=== PATIENT | female | born 1980 | race Caucasian/White ===

== ENCOUNTER → 2019-09-10 16:38 | Outpatient (CLI) | payer BC, SELFPAY ==
[2019-09-10 17:05] LABS: Basophils # 0.1 K/mm3 (0-0.2); Basophils % 0.6 % (0.1-2.0); Eosinophils # 0.2 K/mm3 (0.0-0.4); Eosinophils % 2.9 % (0.1-12.0); Hematocrit 40.9 % (37.0-47.0); Hemoglobin 13.8 g/dL (12.2-16.2); Lymphocytes # 1.9 K/mm3 (0.7-4.5); Lymphocytes % 24.2 % (10-50); Mean Corpuscular HGB Conc 33.7 g/dL (31.8-35.4); Mean Corpuscular Hemoglobin 30.1 pg (27.0-31.2); Mean Corpuscular Volume 89.4 fl (81-99); Mean Platelet Volume 9.1 fl (7.4-10.4); Monocytes # 0.5 K/mm3 (0.1-1.0); Monocytes % 6.4 % (1.7-9.3); Neutrophils # 5.2 K/mm3 (1.8-7.8); Neutrophils % 65.9 % (37.0-80.0); Platelet Count 361 K/mm3 (142-424); Red Blood Count 4.57 M/mm3 (4.20-5.40); Red Cell Distribution Width 13.1 % (11.5-17.5); White Blood Count 7.8 K/mm3 (4.8-10.8)
[2019-09-10 17:11] LABS: Chloride 105 mmol/L (98-107); Potassium 4.1 mmoL/L (3.5-5.1); Sodium 141 mmol/L (136-145)
[2019-09-10 17:14] LABS: Alanine Aminotransferase 24 U/L (12-78); Albumin Level 4.4 g/dl (3.5-5.0); Albumin/Globulin Ratio 1.6 (1.1-1.8); Alkaline Phosphatase 42 U/L (38-126); Anion Gap 13.1 mEq/L (5-15); Aspartate Amino Transferase 29 U/L (14-36); Bilirubin,Total 0.4 mg/dl (0.2-1.3); Blood Urea Nitrogen 12 mg/dl (7-17); Carbon Dioxide 27 mmol/L (22.0-30.0); Cholesterol 171 mg/dl (140-200); Estimated Glomerular Filt Rate 62 ml/min (>60); GFR (African American) 75 ML/MIN (>60); Globulin 2.8 g/dL (1.3-3.2); Glucose 95 mg/dl (74-100); Total Protein,Serum 7.2 g/dl (6.3-8.2); Triglycerides 165 mg/dl (30-150); VLDL Cholesterol 33 mg/dL (0-40)
[2019-09-10 17:15] LABS: Chol/HDL Ratio 2.3 (1-3.5); HDL Cholesterol 73 mg/dl (40-60)
[2019-09-10 17:26] LABS: Direct LDL Cholesterol 62.11 mg/dL (100-129)
[2019-09-10 17:45] LABS: Thyroid Stimulating Hormone 1.68 uIU/mL (0.465-4.68)
[2019-09-12 20:42] LABS: Folate 12.5 ng/mL (>3.0); Vitamin B12 405 pg/mL (232-1245); Vitamin D 25 Hydroxy 51.8 ng/mL (30.0-100.0)
== END ==
PROVIDERS: Visit Provider Physician Assistant
DX: G62.9 Polyneuropathy, unspecified (principal); Z79.899 Other long term (current) drug therapy
CPT/HCPCS: 80053; 80061; 82607; 82652; 82746; 84436; 84443; 85025

== ENCOUNTER → 2020-04-14 16:08 | Outpatient (CLI) | payer BC, SELFPAY ==
--- NOTE | 2020-04-14 16:09 | MM_ITS ---
PROCEDURE: MM DIG SCREENING MAMM BI W/CAD Digital Breast Tomosynthesis Included CLINICAL INDICATION: screening There is a history of breast cancer in the patient's mother diagnosed at age 50. COMPARISON: This is a baseline exam, patient without complaints TECHNIQUE: Standard CC and MLO images and 3D Tomosynthesis was obtained. R2 CAD reviewed. FINDINGS: Prominent somewhat heterogenic fibroglandular densities are seen throughout both breast. There is a possible asymmetric density lower inner quadrant left breast best appreciated on the CC projection where it shows somewhat irregular borders. Endy images are somewhat indeterminate recommend the patient return for spot compression views and ultrasound if this proves to be a true lesion there are no suspicious microcalcifications.. IMPRESSION: Moderate breast density with possible asymmetric lesion left breast versus asymmetric normal glandular elements BI-RAD Category: 0 Need Additional Imaging Evaluation FOLLOW-UP: IMM Immediate Follow-up Recommended (A letter has been sent to the patient regarding results of the study.) Dictated by: Dr. Magdi Edward MD 04/19/2020 13:23 Dr. Magdi Edward MD in [place] 04/19/2020 13:23
--- NOTE | 2020-04-14 16:12 | XR_ITS ---
PROCEDURE: XR CHEST 2V CLINICAL HISTORY: Smoker Cough COMPARISON: No exams were available for comparison FINDINGS: The cardiomediastinal silhouette and pulmonary vascularity are within normal limits. The lungs are clear without infiltrates, suspicious nodules, or pleural effusions. Minimal midthoracic curvature convex right IMPRESSION: No acute findings. Dictated by: Marcellus Spear MD 04/14/2020 16:54 Marcellus Spear MD in [place] 04/14/2020 16:54
== END ==
PROVIDERS: PCP Physician Assistant; Visit Provider Physician Assistant
DX: Z12.31 Encounter for screening mammogram for malignant neoplasm of breast (principal); F17.200 Nicotine dependence, unspecified, uncomplicated
CPT/HCPCS: 71046; 77063; 77067

== ENCOUNTER 2020-06-14 13:40 | Emergency (ER) | payer BC, SELFPAY ==
[2020-06-14 13:51] VITALS: BP 127/76; PULSE 74; RESP 19; TEMP 36.6; O2SAT 99; BMI 24.3
--- NOTE | 2020-06-14 13:58 | HMH.EDUTC ---
[facility] [place] Clinical Impression: Close exposure to COVID-19 virus Disposition: Home, Self-Care Condition on Discharge: Good Instructions: Preventing the Spread of Coronavirus Discharge Instructions Additional Instructions: *Monitor Temp, Over the counter Motrin or Tylenol as directed/as needed Tylenol every 4 hours and Motrin every 6 hours (as long as your family doctor has told you that you can take it) for fever or pain. and straight to ER if unable to lower temp less than 101.0 after medication given *Warm salt water gargles may help to soothe the throat *Throat Lozenges *Warm fluids like tea with honey may help to soothe the throat *Sleep elevated *Humidifier/Vaporizer Follow up IMMEDIATELY for new or worsening symptoms or no Noticeable improvement over the next 48-72 hours. 911 for difficulty breathing or swallowing You were tested for today for COVID19 your test result should be back in the next 24-48 hours, you may call to the [facility] to see if your test results are back in the next 48 hours [phone] [facility] hours are 9am-9pm You was given a handout with instructions for Self Quarantine and Self isolation for while you wait on test results and what to do if they are positive If you are positive the Health Dept will be contacting you also Referrals: Haleigh Way PA [Primary Care Provider] - As needed Forms: Work/School Release Time of Disposition: 14:00 Medical Decision Making - Gerardo Inquiry Pt receiving controlled substance: No Gerardo was queried for this patient: No Vital Signs: 06/14/20 13:51 Temperature 97.8 F Temperature Source Oral Pulse Rate [Right Brachial] 74 Respiratory Rate 19 Blood Pressure [Right Arm] 127/76 Blood Pressure Mean [Right Arm] 93 Blood Pressure Source [Right Arm] Automatic Cuff Blood Pressure Position [Right Arm] Sitting 02 Sat by Pulse Oximetry 99 Oxygen Delivery Method Room Air Orders (Tests/Meds): ORDERS Category Date Time Status Covid-19 Nasal PCR Sendout [facility] 06/14/20 13:46 Ordered [facility] [place] HPI - General Stated complaint: covid exposure Time Seen by Provider: 06/14/20 13:58 Mode of Arrival: Ambulatory Source of Information: Patient Description of Symptoms (Recalled from Triage Doc. by RN): covid exposure 1wk ago, denies any symptoms HEENT Symptoms (Recalled from RN notes): No Resp Symptoms (Recalled from RN notes): No Skin Symptoms (Recalled from RN notes): No MS Symptoms (Recalled from RN notes): No Functional Status (Recalled from RN notes): wnl - History of Present Illness Provider Complaint: Patient state that she was recently around someone that tested positive for COVID State that she is not having any symptoms but wanted to get checked - Related Data Previous Rx's Medication Instructions Recorded cyclobenzaprine 10 mg tablet 10 mg PO TID PRN #30 tab 01/14/20 gabapentin 400 mg capsule 400 mg PO TID #90 cap 05/31/20 pantoprazole 40 mg granules 40 mg PO DAILY #30 each 05/31/20 delayed-release for susp in packet Allergies Allergy/AdvReac Type Severity Reaction Status Date / Time No Known Allergies Allergy Verified 05/31/20 08:32 - Worker's Comp Is this a Worker's Comp case?: No [facility] History - Hepatitis A Screen Drug use history?: No High risk sexual behaviors?: No History of sexually transmitted infection?: No Currently employed?: No Childcare worker?: No Do you have indoor plumbing?: Yes Do you have electricity?: Yes Attestation statement:: This patient has been screened for Hepatitis A risk factors. I have reviewed the patient's past medical history: Yes Medical History: Reports:: Anxiety, Asthma, Hepatitis, Kidney Stones Other Medical History: Reports: Anemia Laterality Cases: Bilateral: Tonsillectomy - Social History Smoking Status: Never smoker Tobacco Type: cigarettes # Packs/Day (cigarettes): 1 Alcohol Intake: never Substance Use Type: former substance user, marijuana, heroin, crack/co
[2020-06-14 14:07] VITALS: BP 127/79; PULSE 74; RESP 19; TEMP 36.6; O2SAT 99
[2020-06-16 12:37] LABS: Covid-19 Nasal PCR Sendout Lex Not Detected
== END 2020-06-14 14:07 | disposition home or self-care (01) ==
PROVIDERS: Emergency Provider Nurse Practitioner; PCP Physician Assistant
DX: Z20.828 Contact with and (suspected) exposure to other viral communicable diseases (principal); F41.9 Anxiety disorder, unspecified; J45.909 Unspecified asthma, uncomplicated; F19.11 Other psychoactive substance abuse, in remission; Z87.442 Personal history of urinary calculi
CPT/HCPCS: 99201; U0004

== ENCOUNTER 2020-07-27 16:53 | Emergency (ER) | payer BC, SELFPAY ==
[2020-07-27 16:55] VITALS: BP 117/86; PULSE 67; RESP 16; TEMP 37.2; O2SAT 97; BMI 24.3
--- NOTE | 2020-07-27 17:07 | HMH.EDUTC ---
[facility] [place] Disposition Clinical Impression: Exposure to COVID-19 virus, Viral syndrome Disposition: Home, Self-Care Condition on Discharge: Good Instructions: DI for COVID-19 (Suspected or Confirmed ), Preventing the Spread of Coronavirus Discharge Instructions Additional Instructions: Drink plenty of fluids. Take tylenol for pain or fever. Return if you begin to have difficulty breathing. Follow up with your regular doctor. GO TO THE ER FOR ANY WORSENING SYMPTOMS Prescriptions: Ondansetron [Zofran 4mg ODT] 4 mg PO Q8HP PRN #12 tab.rapdis PRN Reason: Nausea Transmission Status: Received by [facility] Referrals: Haleigh Way PA [Primary Care Provider] - Time of Disposition: 17:19 Medical Decision Making - Medical Records Medical records reviewed: No: I reviewed the patient's medical records. - Gerardo Inquiry Pt receiving controlled substance: No Vital Signs: 07/27/20 16:55 07/27/20 17:21 Temperature 98.9 F 98.9 F Temperature Source Oral Oral Pulse Rate 67 Pulse Rate [Right] 67 Respiratory Rate 16 16 Blood Pressure 117/86 Blood Pressure [Right Arm] 117/86 Blood Pressure Mean [Right Arm] 96 02 Sat by Pulse Oximetry 97 Orders (Tests/Meds): ORDERS Category Date Time Status Covid-19 Nasal PCR Sendout [facility] 07/27/20 17:06 Received [facility] [place] HPI - General Stated complaint: needs covid test,N/V,body aches Time Seen by Provider: 07/27/20 17:07 Description of Symptoms (Recalled from Triage Doc. by RN): pt request COVID test pt c/o Jimenes, fever, fatigue HEENT Symptoms (Recalled from RN notes): No Resp Symptoms (Recalled from RN notes): No Skin Symptoms (Recalled from RN notes): No MS Symptoms (Recalled from RN notes): No Functional Status (Recalled from RN notes): wnl - History of Present Illness Provider Complaint: She is here c/o body ache, nausea/vomiting and feeling bad for the past 2 days. - Related Data Previous Rx's Medication Instructions Recorded cyclobenzaprine 10 mg tablet 10 mg PO TID PRN #30 tab 01/14/20 gabapentin 400 mg capsule 400 mg PO TID #90 cap 05/31/20 pantoprazole 40 mg granules 40 mg PO DAILY #30 each 05/31/20 delayed-release for susp in packet Ondansetron [Zofran 4mg ODT] 4 mg PO Q8HP PRN #12 tab.rapdis 07/27/20 Allergies Allergy/AdvReac Type Severity Reaction Status Date / Time No Known Allergies Allergy Verified 07/27/20 17:07 - Worker's Comp Is this a Worker's Comp case?: No Is this an [facility] Worker's Comp?: No Is this a Debo Worker's Comp?: No H History - Hepatitis A Screen Drug use history?: No High risk sexual behaviors?: No History of sexually transmitted infection?: No Currently employed?: No Childcare worker?: No Do you have indoor plumbing?: Yes Do you have electricity?: Yes Attestation statement:: This patient has been screened for Hepatitis A risk factors. I have reviewed the patient's past medical history: Yes Medical History: Reports:: Anxiety, Asthma, Hepatitis, Kidney Stones Other Medical History: Reports: Anemia Laterality Cases: Bilateral: Tonsillectomy - Social History Smoking Status: Never smoker Tobacco Type: cigarettes # Packs/Day (cigarettes): 1 Alcohol Intake: never Substance Use Type: former substance user, marijuana, heroin, crack/cocaine Occupational Status: employed Housing: house Household Members: spouse - Psychiatric History Pschychiatric History:: Reports:: Anxiety ROS Obtained: Yes All systems reviewed & no additional complaints - Constitutional Constitutional: Reports system reviewed and no additional complaints, except as docu - Eyes Eyes: Reports system reviewed and no additional complaints, except as docu - ENT Ears, Nose, Mouth, and Throat: Reports system reviewed and no additional complaints, except as docu - Cardiovascular Cardiovascular: Reports system reviewed and no additional complaints, except as docu - Respiratory Respiratory: R
[2020-07-27 17:21] VITALS: BP 117/86; PULSE 67; RESP 16; TEMP 37.2; O2SAT 97
[2020-07-29 10:57] LABS: Covid-19 Nasal PCR Sendout P&C Negative
== END 2020-07-27 17:25 | disposition home or self-care (01) ==
PROVIDERS: Emergency Provider Nurse Practitioner Family; PCP Physician Assistant
DX: Z20.822 Contact with and (suspected) exposure to COVID-19 (principal); F19.11 Other psychoactive substance abuse, in remission
CPT/HCPCS: 99202; G0463; U0004

== ENCOUNTER 2020-11-01 14:29 | Emergency (ER) | payer OTHER, SELFPAY ==
[2020-11-01 15:02] VITALS: BP 98/68; PULSE 64; RESP 18; TEMP 36.7; O2SAT 99; BMI 25.0
--- NOTE | 2020-11-01 15:09 | HMH.EDUTC ---
[facility] [place] Disposition Clinical Impression: Sinusitis Qualifiers: Sinusitis location: unspecified location Chronicity: unspecified Qualified Code(s): J32.9 - Chronic sinusitis, unspecified Disposition: Home, Self-Care Condition on Discharge: Good Instructions: Sinusitis, Diarrhea, DI for Sinusitis, Nausea and Vomiting-Adult Additional Instructions: Drink extra fluids with and between meals. If you have difficulty drinking, try very small amounts of water or suck on ice chips. ? Avoid fruit juices, as these do not replace minerals and can actually increase diarrhea. ? Children and adults can use sports drinks to replenish electrolytes. Younger children and infants should use products formulated for children, like oral rehydration solutions. ? Eat food in small amounts and let your stomach recover. ? Get lots of rest. You may feel tired or weak. ? No greasy or fried foods for the next 24-48 hours BRAT diet Bananas Rice Apples and Catlett ? Make sure to drink plenty of liquids ? Return if needed ? Straight to ER if any life threatening symptoms ? Zofran as prescribed ? Follow up with family doctor in the next 48-72 hours if no improvement or any worsening of symptoms Start antibiotic. Sinus infections may take 2-3 days to notice much improvement so be sure to use conservative measures as discussed for symptoms Flonase 2 spray in each nostril daily to help with nasal congestion, sinus an ear pressure/inflammation Lots of Fluids Sleep elevated Humidifer/vaporizer Augmentin can cause GI effects. Probiotics may help to prevent these symptoms Follow up with family doctor if no improvement or any worsening of symptoms Prescriptions: Amoxicillin/Potassium Clav [Augmentin 875-125 Tablet] 1 tab PO Q12H 7 Days #14 tab Transmission Status: Pending to [facility] Ondansetron [Zofran 4mg ODT] 4 mg PO TIDP PRN #6 tab PRN Reason: Vomiting Transmission Status: Pending to [facility] Referrals: Haleigh Way PA [Primary Care Provider] - As needed Forms: Work/School Release Time of Disposition: 15:16 Medical Decision Making - Gerardo Inquiry Pt receiving controlled substance: No Gerardo was queried for this patient: No Vital Signs: 11/01/20 15:02 Temperature 98.1 F Temperature Source Oral Pulse Rate [Right Brachial] 64 Respiratory Rate 18 Blood Pressure [Right Arm] 98/68 L Blood Pressure Mean [Right Arm] 78 Blood Pressure Source [Right Arm] Automatic Cuff Blood Pressure Position [Right Arm] Sitting 02 Sat by Pulse Oximetry 99 Oxygen Delivery Method Room Air [facility] [place] HPI - General Stated complaint: nausea,SOA,sinus congestion,diarrhea Time Seen by Provider: 11/01/20 15:09 Mode of Arrival: Ambulatory Source of Information: Patient Limitations: No Limitations Description of Symptoms (Recalled from Triage Doc. by RN): FEVER, NAUSEA HEENT Symptoms (Recalled from RN notes): Yes Resp Symptoms (Recalled from RN notes): No Skin Symptoms (Recalled from RN notes): No MS Symptoms (Recalled from RN notes): No Functional Status (Recalled from RN notes): WNL - History of Present Illness Provider Complaint: Patient states that she has been having sinus pain and pressure for over a week States that over the weekend she had some nausea/vomiting/diarrhea State that she thinks it was from the drainage in the back of her throat from her sinuses States that she is blowing yellowish green mucous - Related Data Previous Rx's Medication Instructions Recorded cyclobenzaprine 10 mg tablet 10 mg PO TID PRN #30 tab 01/14/20 gabapentin 400 mg capsule 400 mg PO TID #90 cap 10/05/20 sucralfate 1 gram tablet 1 g PO QAC #90 tab 10/05/20 Amoxicillin/Potassium Clav 1 tab PO Q12H 7 Days #14 tab 11/01/20 [Augmentin 875-125 Tablet] Ondansetron [Zofran 4mg ODT] 4 mg PO TIDP PRN #6 tab 11/01/20 Allergies Allergy/AdvReac Type Severity Reaction Status Date / Time No Known Allergies Allergy Verified 10/05/20 16:00 - Wor
[2020-11-01 15:18] VITALS: BP 98/68; PULSE 64; RESP 18; TEMP 36.7
== END 2020-11-01 15:22 | disposition home or self-care (01) ==
PROVIDERS: Emergency Provider Nurse Practitioner; PCP Physician Assistant
DX: J32.9 Chronic sinusitis, unspecified (principal)
CPT/HCPCS: 99202; G0463

== ENCOUNTER → 2020-11-03 15:07 | Outpatient (CLI) | payer OTHER, SELFPAY | PROVIDERS: PCP Physician Assistant; Visit Provider Physician Assistant | DX: Z20.822 Contact with and (suspected) exposure to COVID-19 (principal); U07.1 COVID-19 | CPT/HCPCS: U0003 ==

== ENCOUNTER 2020-12-12 10:31 | Day surgery (SDC) | payer OTHER, SELFPAY ==
[2020-12-06 14:36] VITALS: BMI 25.0
[2020-12-12] VITALS (7 sets, daily range): BP systolic 91–108; BP diastolic 58–73; PULSE 60–69; RESP 16–18; TEMP 36.4; O2SAT 96–99
[2020-12-12 11:14] LABS: Urine Pregnancy, HCG Qual. Negative (Negative)
--- NOTE | 2020-12-12 11:57 | P.PN_ITS ---
[facility] Anesthesia Checklist - Patient Identification Patient Identification: Arm Band - Structural Data Admitted From: Home Planned Operative Procedure/s: EGD Consent for Planned Operative Procedure(s) Verified: Yes - NPO Status Verified Time NPO: 00:00 - Airway Assessment C-Spine Mobility Assessed: Yes TMJ Mobility Assessed: Yes Dentition: Good Dentition (Several missing) - Neurological Assessment Level of Consciousness: Awake Hx Seizures: Yes Numbness or tingling in extremities: No - Anesthesia Plan Anesthesia Risk discussed: Yes Anesthesia Plan: Verified ASA Class: II Anesthesia Type: MAC [facility] History I have reviewed the patient's past medical history: Yes Medical History: Reports:: Anxiety, Asthma, Hepatitis, Kidney Stones Denies:: Cancer, Diabetes Mellitus Type 1, Diabetes Mellitus Type 2, Internal Pacemaker, MRSA, Seizures *Have you ever received a pneumonia vaccine?: No *Have you received a flu vaccine this season?: No Other Medical History: Reports: Anemia Anesthesia experience/problems:: None Laterality Cases: Bilateral: Tonsillectomy Other Surgeries: No: Pacemaker Amputation: No - *Social History Last grade of school completed: GED Smoking Status: Never smoker Tobacco Type: cigarettes # Packs/Day (cigarettes): 1 Alcohol Intake: never Substance Use Type: former substance user, marijuana, heroin, crack/cocaine *Occupational Status:: employed Housing: house Household Members: spouse, family *Travel in the last 8 weeks: None - Psychiatric History Pschychiatric History:: Reports:: Anxiety Family Hx:: Unable to obtain
--- NOTE | 2020-12-12 11:57 | HMH.PROC ---
[facility] Procedure Note Procedure Note:: Upper Endoscopy Procedure Report: Esophagogastroduodenoscopy with cold biopsies Endoscopost: Jt Pacheco II, MD Referring Physician: Haleigh Way PA-C Date of Procedure: December 12, 2020 Equipment: Olympus GIF 190 standard upper endoscope Sedation: MAC sedation Indications: Mrs. Sheehan is a 39-year-old female with intractable GERD and dyspepsia. She did not get relief with Nexium or Prilosec. She gets only partial relief with the newer PPI (? Dexilant). The patient does report some epigastric abdominal discomfort, bloating, belching, nausea and early satiety. She does get heartburn and reflux. She reports no dysphagia. The patient does have chronic IBS with diarrhea. Procedure: Prior to the procedure, a history and physical exam was performed, and patient's medications and allergies were reviewed. The risks, benefits and alternatives of the sedation and procedure were discussed with the patient. All questions were answered and informed consent was obtained. The patient was brought to the procedure room. Patient identification and proposed procedure were verified by the physician and the nurse. The patient was placed in a left lateral decubitus position and the scope was passed under direct vision. Throughout the procedure, the patient's blood pressure, pulse, and oxygen saturations were monitored continuously. The upper GI endoscopy was accomplished without difficulty. The patient tolerated the procedure well. Findings: The scope was passed directly into the upper esophagus and advanced to the third portion of the duodenum. The post bulbar duodenum and duodenal bulb were normal with normal mucosa and conniventes. Cold biopsies were taken from the post bulbar duodenum and duodenal bulb to rule out celiac disease. The scope was withdrawn through a normal duodenal bulb and pylorus into the stomach. There was mild linear reactive gastropathy of the antrum and there was chronic gastritis of the body and fundus. Biopsies were taken along the lesser curvature to rule out H. pylori. Upon retroflexion there was no hiatal hernia. The scope was then withdrawn into the esophagus. There was no evidence of reflux esophagitis or Hogan's. There were tertiary contractions and evidence of moderate esophageal dysmotility. There was a serrated Z-line suggestive of nonerosive GERD. Biopsies were taken at the GE junction. The remainder of the esophageal mucosa was normal. Impression: 1. Nonerosive GERD with moderate esophageal dysmotility 2. Bile reflux with mild reactive gastropathy and moderate chronic gastritis Plan: I will follow-up the biopsies to rule out H. pylori. I do feel that the patient has chronic functional dyspepsia and functional GERD. We will discuss dietary measures and treatment options. I will discuss the findings with the patient and family.
== END 2020-12-12 13:05 ==
PROVIDERS: PCP Physician Assistant; Visit Provider Internal Medicine Gastroenterology
PROC: 0DJ08ZZ Inspection of Upper Intestinal Tract, Via Natural or Artificial Opening Endoscopic (ICD-10-PCS; CPT 43235; principal; 2020-12-12 12:00)
DX: K21.9 Gastro-esophageal reflux disease without esophagitis (principal); K22.4 Dyskinesia of esophagus; K31.9 Disease of stomach and duodenum, unspecified; K29.50 Unspecified chronic gastritis without bleeding; K58.0 Irritable bowel syndrome with diarrhea; F41.9 Anxiety disorder, unspecified; J45.909 Unspecified asthma, uncomplicated; K75.9 Inflammatory liver disease, unspecified; Z87.442 Personal history of urinary calculi; Z79.899 Other long term (current) drug therapy; F12.11 Cannabis abuse, in remission; F11.11 Opioid abuse, in remission; F14.11 Cocaine abuse, in remission
CPT/HCPCS: 43239; 81025; J2704

== ENCOUNTER 2021-02-10 10:24 | Emergency (ER) | payer OTHER, SELFPAY ==
[2021-02-10 10:25] VITALS: BP 98/68; PULSE 58; RESP 18; TEMP 37.1; O2SAT 98; BMI 24.3
--- NOTE | 2021-02-10 10:40 | HMH.EDUTC ---
[facility] [place] Disposition Clinical Impression: Sinusitis Qualifiers: Sinusitis location: unspecified location Chronicity: unspecified Qualified Code(s): J32.9 - Chronic sinusitis, unspecified Disposition: Home, Self-Care Condition on Discharge: Good Instructions: Sinusitis, DI for Sinusitis, Amoxicillin and Clavulanic Acid Additional Instructions: *Monitor Temp, Over the counter Motrin or Tylenol as directed/as needed Tylenol every 4 hours and Motrin every 6 hours (as long as your family doctor has told you that you can take it) for fever or pain. and straight to ER if unable to lower temp less than 101.0 after medication given *Warm salt water gargles may help to soothe the throat *Throat Lozenges *Warm fluids like tea with honey may help to soothe the throat *Sleep elevated *Humidifier/Vaporizer *Flonase 2 sprays in each nostril daily but be aware that it may take 2-3 days before you notice improvement Follow up IMMEDIATELY for new or worsening symptoms or no Noticeable improvement over the next 48-72 hours. 911 for difficulty breathing or swallowing You were tested for today for COVID19 your test result should be back in the next 24-48 hours, you may call to the [facility] to see if your test results are back in the next 48 hours [phone] [facility] hours are 9am-9pm You was given a handout with instructions for Self Quarantine and Self isolation for while you wait on test results and what to do if they are positive If you are positive the Health Dept will be contacting you also Prescriptions: Amoxicillin/Potassium Clav [Augmentin 875-125 Tablet] 1 tab PO Q12H 7 Days #14 tab Transmission Status: Pending to [facility] predniSONE [Deltasone 10mg tablet] 10 mg PO BID 5 Days #10 tab Transmission Status: Pending to [facility] Referrals: Haleigh Way PA [Primary Care Provider] - As needed Time of Disposition: 10:47 Medical Decision Making - Gerardo Inquiry Pt receiving controlled substance: No Gerardo was queried for this patient: No Vital Signs: 02/10/21 10:25 Temperature 98.8 F Temperature Source Oral Pulse Rate [Left Brachial] 58 L Respiratory Rate 18 Blood Pressure [Left Arm] 98/68 L Blood Pressure Mean [Left Arm] 78 Blood Pressure Source [Left Arm] Automatic Cuff Blood Pressure Position [Left Arm] Sitting 02 Sat by Pulse Oximetry 98 Oxygen Delivery Method Room Air Medical Decision Narrative: Patient states that she has taken both Augmentin and prednisone before without complications or reactions [facility] [place] HPI - General Stated complaint: covid test Time Seen by Provider: 02/10/21 10:40 Mode of Arrival: Ambulatory Source of Information: Patient Limitations: No Limitations Description of Symptoms (Recalled from Triage Doc. by RN): PATIENT C/O CONGESTION, SINUS PRESSURE AND BODY ACHES. 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 States that she wanted to get looked at and tested for COVID State that she has been having sinus pain and pressure for over a week, drainage and pressure like feeling behind her eyes - Related Data Previous Rx's Medication Instructions Recorded Ondansetron [Zofran 4mg ODT] 4 mg PO TIDP PRN #6 tab 11/01/20 albuterol sulfate 90 mcg/actuation 2 puff INHALATION Q4-6H PRN 90 11/08/20 aerosol inhaler Days #3 units sucralfate 1 gram tablet 1 g PO QAC #90 tab 01/18/21 amoxicillin 500 mg-clarithromycin See Rx Instructions PO .COMPLEX #8 01/24/21 500 mg-lansoprazole 30 mg combo pkg pack gabapentin 400 mg capsule
[2021-02-10 10:43] VITALS: BP 98/68; PULSE 58; RESP 18; TEMP 37.1; O2SAT 98
== END 2021-02-10 11:01 | disposition home or self-care (01) ==
PROVIDERS: Emergency Provider Nurse Practitioner; PCP Physician Assistant
DX: J32.9 Chronic sinusitis, unspecified (principal); Z20.822 Contact with and (suspected) exposure to COVID-19; F41.9 Anxiety disorder, unspecified; Z87.442 Personal history of urinary calculi; F17.210 Nicotine dependence, cigarettes, uncomplicated
CPT/HCPCS: 99202; G0463; U0003

== ENCOUNTER → 2021-06-05 14:53 | Outpatient (CLI) | payer OTHER, SELFPAY | PROVIDERS: PCP Physician Assistant; Visit Provider Nurse Practitioner | DX: Z20.822 Contact with and (suspected) exposure to COVID-19 (principal) | CPT/HCPCS: C9803; U0003; U0005 ==

== ENCOUNTER → 2021-07-11 10:36 | Outpatient (CLI) | payer OTHER, SELFPAY | PROVIDERS: PCP Physician Assistant; Visit Provider Nurse Practitioner | DX: U07.1 COVID-19 (principal) | CPT/HCPCS: C9803; U0003; U0005 ==

== ENCOUNTER → 2021-07-18 11:04 | Outpatient (CLI) | payer OTHER, SELFPAY | PROVIDERS: Visit Provider Nurse Practitioner | DX: Z20.822 Contact with and (suspected) exposure to COVID-19 (principal) | CPT/HCPCS: C9803; U0003; U0005 ==

== ENCOUNTER → 2021-08-01 16:53 | Outpatient (CLI) | payer OTHER, SELFPAY | PROVIDERS: PCP Physician Assistant; Visit Provider Nurse Practitioner | DX: Z20.822 Contact with and (suspected) exposure to COVID-19 (principal) | CPT/HCPCS: C9803; U0003; U0005 ==

== ENCOUNTER → 2022-01-13 08:50 | Outpatient (CLI) | payer OTHER, SELFPAY ==
[2022-01-12 16:55] LABS: Adenovirus,PCR Not Detected (NotDetected); Bordetella Pertussis Not Detected (NotDetected); Chlamydophila Pneumoniae, PCR Not Detected (NotDetected); Coronavirus 229E Not Detected (NotDetected); Coronavirus NL63 Not Detected (NotDetected); Coronavirus OC43 Not Detected (NotDetected); Coronovirus HKU1,PCR Not Detected (NotDetected); Human Metapneumovirus Not Detected (NotDetected); Influenza A, PCR Not Detected (NotDetected); Influenza AH1, 2009 Not Detected (NotDetected); Influenza AH1, PCR Not Detected (NotDetected); Influenza AH3,PCR Not Detected (NotDetected); Influenza B, PCR Not Detected (NotDetected); Mycoplasma Pneumoniae, PCR Not Detected (NotDetected); Parainfluenza 1, PCR Not Detected (NotDetected); Parainfluenza 2, PCR Not Detected (NotDetected); Parainfluenza 3, PCR Not Detected (NotDetected); Parainfluenza 4, PCR Not Detected (NotDetected); Respiratory Syncytial Virus Not Detected (NotDetected); Rhinovirus/Enterovirus Not Detected (NotDetected)
[2022-01-12 18:17] LABS: Coronavirus 19, PCR Detected (NotDetected)
== END ==
PROVIDERS: PCP Family Medicine; Visit Provider Family Medicine
DX: U07.1 COVID-19 (principal)
CPT/HCPCS: 87581; 87632; 87798; C9803; U0003; U0005

== ENCOUNTER 2022-03-28 10:18 | Emergency (ER) | payer OTHER, SELFPAY ==
[2022-03-28 11:20] VITALS: BP 107/65; PULSE 88; RESP 17; TEMP 36.9; O2SAT 97; BMI 23.7
--- NOTE | 2022-03-28 11:55 | EXP.UTC ---
Discharge Plan Disposition Patient Disposition: Home, Self-Care Condition: Good Prescriptions Prescriptions: New amoxicillin-pot clavulanate 875-125 mg Tablet 1 tab PO Q12H Qty: 20 0RF fluticasone propionate [Flonase Allergy Relief] 50 mcg/actuation spray,suspension 1 spray intranasal DAILY Qty: 16 0RF Rx Instructions: administer into each nostril No Action azithromycin 500 mg tablet 500 mg PO DAILY 3 Days Qty: 3 0RF pantoprazole [Protonix] 40 mg tablet,delayed release (DR/EC) 40 mg PO DAILY Qty: 90 3RF dicyclomine 20 mg tablet 20 mg PO TID PRN (Reason: abdominal discomfort) Qty: 90 3RF gabapentin 400 mg capsule 400 mg PO TID PRN (Reason: Pain) Qty: 90 2RF albuterol sulfate [ProAir HFA] 90 mcg/actuation HFA aerosol inhaler 2 puff INHALATION Q4-6H PRN (Reason: shortness of breath or wheezing) 90 Days Qty: 3 3RF Rx Instructions: administer with spacer Referrals Follow up/Referrals: Ravi Mathew MD [Primary Care Provider] - See instructions Activity Restrictions/Add. Instructions Additional Instructions/Restrictions: Use dental balls as advised in the [facility] Take oral antibitotics as prescribed FOllow up with your Dentist as soon as possible Return if needed Straight to ER if any life threatening symptoms Clinical Impressions Clinical Impression: Abscess, dental, Otitis media Instructions Patient Instructions: DI for Tooth Abscess, DI for Tooth Decay, Middle Ear Infection Discharge ED Provider: Em Falk [facility] HPI General Stated complaint: mouth pain, vomiting Mode of Arrival: Ambulatory Source of Information: Patient Limitations: No Limitations Time Seen by Provider: 03/28/22 11:55 Description of Symptoms (Recalled from Triage Doc. by RN): PATIENT C/O TOP LEFT TOOTH PAIN, EAR PAIN, DIZZINESS AND VOMITING SINCE LAST NIGHT HEENT Symptoms (Recalled from RN notes): Yes Resp Symptoms (Recalled from RN notes): No Skin Symptoms (Recalled from RN notes): No MS Symptoms (Recalled from RN notes): No Functional Status (Recalled from RN notes): WNL History of Present Illness Provider Complaint: Patient states that she has been having issues with tooth on her left upper tooth States that she has also been having pain in her left ear and feeling of fullness when she got up this morning she felt a little dizzy and it made her nauseous States that pain in her tooth has continued and she called her dentist and they couldnt get her in for several weeks so she came in Related Data Previous Rx's Medication Instructions Recorded albuterol sulfate 90 mcg/actuation 2 puff inhalation Q4-6H PRN 11/08/20 aerosol inhaler (ProAir HFA) shortness of breath or wheezing 90 days #3 multiple units dicyclomine 20 mg tablet 20 mg PO TID PRN abdominal 09/21/21 discomfort #90 tabs pantoprazole 40 mg tablet,delayed 40 mg PO DAILY #90 tabs 09/21/21 release (Protonix) gabapentin 400 mg capsule 400 mg PO TID PRN Pain #90 caps 11/16/21 azithromycin 500 mg tablet 500 mg PO DAILY 3 days #3 tabs 01/12/22 amoxicillin 875 mg-potassium 1 tab PO Q12H #20 tabs 03/28/22 clavulanate 125 mg tablet fluticasone propionate 50 1 spray intranasal DAILY #16 grams 03/28/22 mcg/actuation nasal spray,suspension (Flonase Allergy Relief) Allergies Allergy/AdvReac Type Severity Reaction Status Date / Time No Known Allergies Allergy Verified 01/12/22 15:31 Worker's Comp Is this a Worker's Comp case?: No [facility] Medical History (Updated 03/28/22 @ 12:03 by Em Falk APRN) Asthma COPD (chronic obstructive pulmonary disease) GERD (gastroesophageal reflux disease) Hepatitis C Migraine Neuropathy RLS (restless legs syndrome) Surgical History (Updated 03/28/22 @ 11:35 by Genie Oliver RN) History of section History of tonsillectomy History of tubal ligation Social History (Updated 03/28/22 @ 11:35 by Genie Oliver RN) Smoking Status: Never smoker a
[2022-03-28 12:13] VITALS: BP 107/65; PULSE 88; RESP 17; TEMP 36.9; O2SAT 97
== END 2022-03-28 12:14 | disposition home or self-care (01) ==
PROVIDERS: Emergency Provider Nurse Practitioner; PCP Family Medicine
DX: K04.7 Periapical abscess without sinus (principal); H66.92 Otitis media, unspecified, left ear
CPT/HCPCS: 99212; G0463

== ENCOUNTER → 2022-07-23 11:09 | Outpatient (CLI) | payer OTHER, SELFPAY ==
--- NOTE | 2022-07-23 11:09 | US_ITS ---
FINAL REPORT TECHNIQUE: Sonographic images of the pelvis were obtained transvaginally. CLINICAL HISTORY: iud placement /surveillance, PT STATED RT LOW ABD PAIN SINCE MIRENA PLACED LAST WEEK FINDINGS: The uterus is anteverted and retroflexed. It measures 7.0 x 4.3 x 4.5 cm. The endometrial stripe measures 10 mm. An IUD is seen within the endometrial cavity. The myometrium is homogeneous. The cervix is within normal limits. The right ovary measures 4.2 x 1.7 x 2.3 cm. There is a 2 cm simple cyst, likely functional cyst. It is normal in appearance. The left ovary is not visualized. Color imaging to the ovaries is within normal limits. There is no free fluid. IMPRESSION: IUD within the endometrial cavity. Right ovarian cyst, likely functional, which is not an unexpected finding in a patient of this age. Reviewed, Interpreted and Dictated by Kassy Eli MD Transcribed by Loulou Diallo Authenticated and [facility]
== END ==
PROVIDERS: PCP Family Medicine; Visit Provider Obstetrics & Gynecology
DX: Z30.431 Encounter for routine checking of intrauterine contraceptive device (principal); Z97.5 Presence of (intrauterine) contraceptive device
CPT/HCPCS: 76830

== ENCOUNTER → 2023-03-12 11:00 | Outpatient (CLI) | payer OTHER, SELFPAY ==
[2023-03-12 19:11] LABS: Basophils % 0.2 % (0.1-2.0); Eosinophils # 0.2 K/mm3 (0.0-0.4); Eosinophils % 1.8 % (0.1-12.0); Hematocrit 34.9 % (37.0-47.0); Hemoglobin 13.6 g/dL (12.2-16.2); Lymphocytes # 1.5 K/mm3 (0.7-4.5); Lymphocytes % 17.3 % (10-50); Mean Corpuscular Hemoglobin 35.6 pg (27.0-31.2); Mean Corpuscular Volume 91.1 fl (81-99); Mean Platelet Volume 9.8 fl (7.4-10.4); Monocytes # 0.5 K/mm3 (0.1-1.0); Monocytes % 5.5 % (1.7-9.3); Neutrophils # 6.4 K/mm3 (1.8-7.8); Neutrophils % 75.1 % (37.0-80.0); Platelet Count 284 K/mm3 (142-424); Red Blood Count 3.83 M/mm3 (4.20-5.40); Red Cell Distribution Width 13.5 % (11.5-17.5); White Blood Count 8.5 K/mm3 (4.8-10.8)
[2023-03-12 19:16] LABS: Alanine Aminotransferase 18 U/L (12-78); Albumin Level 4.2 g/dl (3.5-5.0); Albumin/Globulin Ratio 1.5 (1.1-1.8); Alkaline Phosphatase 61 U/L (38-126); Anion Gap 13.5 mEq/L (5-15); Aspartate Amino Transferase 22 U/L (14-36); Bilirubin,Total 0.6 mg/dl (0.2-1.3); Blood Urea Nitrogen 10 mg/dl (7-17); Calcium 9.3 mg/dl (8.4-10.2); Carbon Dioxide 24 mmol/L (22.0-30.0); Chloride 106 mmol/L (98-107); Chol/HDL Ratio 2.5 (1-3.5); Cholesterol 173 mg/dl (140-200); Estimated Glomerular Filt Rate 109 ml/min (>60); GFR (African American) 132 ML/MIN (>60); Globulin 2.8 g/dL (1.3-3.2); Glucose 100 mg/dl (74-100); HDL Cholesterol 70 mg/dl (40-60); Potassium 4.5 mmoL/L (3.5-5.1); Sodium 139 mmol/L (136-145); Triglycerides 82 mg/dl (30-150); VLDL Cholesterol 16 mg/dL (0-40)
[2023-03-12 19:28] LABS: C-Reactive Protein 0.4 mg/L (0-4); Direct LDL Cholesterol 76.44 mg/dL (100-129)
[2023-03-12 19:34] LABS: 25-OH Vitamin D, Total 60.2 ng/mL (30-100)
[2023-03-12 19:47] LABS: Thyroid Stimulating Hormone 0.13 uIU/mL (0.465-4.68)
[2023-03-12 19:54] LABS: Erythrocyte Sedimentation Rate 16 mm/hr (0-20)
[2023-03-12 20:07] LABS: Vitamin B12 > 1000 pg/mL (239-931)
[2023-03-14 10:44] LABS: LH 66.1 mIU/mL (.); Progesterone 0.8 ng/mL (.); Testosterone,Total 27 ng/dL (4-50)
[2023-03-14 12:14] LABS: Anti-Centromere B Antibodies <0.2 AI (0.0-0.9); Anti-DNA (DS) Ab Qn 3 IU/mL (0-9); Anti-Jo-1 <0.2 AI (0.0-0.9); Anti-Smith Antibody <0.2 AI (0.0-0.9); Antichromatin Antibodies <0.2 AI (0.0-0.9); Antiscleroderma-70 Antibodies <0.2 AI (0.0-0.9); RA Latex Turbid. 11.4 IU/mL (<14.0); RNP Antibodies <0.2 AI (0.0-0.9); Sjogren's Anti-SS-A <0.2 AI (0.0-0.9); Sjogren's Anti-SS-B <0.2 AI (0.0-0.9)
[2023-03-14 17:11] LABS: Anti-Cyclic Citrullinated Pept 6 units (0-19)
[2023-03-17 16:01] LABS: Estrogen 372 pg/mL (.)
== END ==
PROVIDERS: PCP Physician Assistant; Visit Provider Physician Assistant
DX: M25.50 Pain in unspecified joint (principal); R45.86 Emotional lability; B19.20 Unspecified viral hepatitis C without hepatic coma
CPT/HCPCS: 80053; 80061; 82306; 82607; 82672; 83001; 83002; 84144; 84403; 84443; 85025; 85651; 86140; 86200; 86225; 86235; 86431; 87522

== ENCOUNTER → 2023-05-29 13:42 | Outpatient (CLI) | payer OTHER, SELFPAY ==
--- NOTE | 2023-05-29 13:46 | MM_ITS ---
PROCEDURE INFORMATION: Exam: MG Bilateral Screening 3D Mammography Exam date and time: 05/29/2023 1:36 PM Age: 42 years old Clinical indication: Screening mammogram TECHNIQUE: Imaging protocol: Bilateral Screening tomosynthesis and 2D mammography including computer-aided detection (CAD) when performed. COMPARISON: MG MM DIG SCREENING MAMM BI W/CAD 04/14/2020 4:17 PM FINDINGS: MAMMOGRAPHY: Breast composition: The breast is heterogeneously dense, which may obscure small masses. Mass: None. Architectural distortion: No new or suspicious architectural distortion. Calcifications: No new or suspicious calcifications are present Asymmetric density: No new or suspicious asymmetric density is present Skin thickening: None. Axillary adenopathy: None. IMPRESSION: No mammographic evidence of malignancy. Recommend annual screening mammography unless otherwise clinically indicated. ASSESSMENT: BI-RADS category 1: Negative
== END ==
PROVIDERS: PCP Physician Assistant; Visit Provider Physician Assistant
DX: Z12.31 Encounter for screening mammogram for malignant neoplasm of breast (principal)
CPT/HCPCS: 77063; 77067

== ENCOUNTER 2023-06-03 13:51 | Outpatient (RCR) | payer OTHER, SELFPAY | END 2023-06-03 15:00 | disposition home or self-care (01) | LOC: OT 13:51 | PROVIDERS: PCP Physician Assistant; Visit Provider Plastic Surgery Surgery of the Hand | DX: S67.22XD Crushing injury of left hand, subsequent encounter (principal) | CPT/HCPCS: 97166 ==

== ENCOUNTER 2023-07-16 17:57 | Outpatient (CLI) | payer OTHER, SELFPAY ==
[2023-07-16 22:33] LABS: Barbiturates Screen,Urine Negative ng/ml (<200); Benzodiazepines Screen,Urine Negative ng/ml (<200); Cannabinoid Screen,Urine Positive ng/ml (<50); Cocaine Screen,Urine Negative ng/ml (<300); Methadone Screen,Urine Negative ng/ml (<300); Phencyclidine Screen,Urine Negative ng/ml (<25)
[2023-07-16 22:40] LABS: Opiate Screen,Urine Negative ng/ml (<300)
[2023-07-17 14:44] LABS: Amphetamine/Metha Screen,Urine Negative ng/ml (<1000)
[2023-07-21 19:25] LABS: Gabapentin,Urine 730.4 ug/mL (.)
== END 2023-07-16 23:59 ==
LOC: LAB.DROPOF 17:58
PROVIDERS: PCP Physician Assistant; Visit Provider Physician Assistant
DX: Z79.899 Other long term (current) drug therapy (principal); G62.9 Polyneuropathy, unspecified
CPT/HCPCS: 80307

== ENCOUNTER 2023-07-29 14:41 | Outpatient (RCR) | payer OTHER, SELFPAY | END 2023-07-29 15:41 | disposition home or self-care (01) | LOC: OT 14:41 | PROVIDERS: PCP Physician Assistant; Visit Provider Plastic Surgery Surgery of the Hand | DX: M79.642 Pain in left hand (principal); S67.22XD Crushing injury of left hand, subsequent encounter | CPT/HCPCS: 97167 ==

== ENCOUNTER 2023-11-21 11:06 | Outpatient (CLI) | payer OTHER, SELFPAY ==
--- NOTE | 2023-11-21 11:10 | XR_ITS ---
FINAL REPORT CLINICAL HISTORY: Rt Knee Pain COMPARISON: None FINDINGS: Three views of the right knee reveal no evidence of fracture or dislocation. The bony alignment is normal. The joint spaces are preserved. There is no evidence of joint effusion. No localized soft tissue abnormality is identified. IMPRESSION: No acute abnormality identified. Reviewed, Interpreted and Dictated by Bryce Ford III, MD Transcribed by Alpa Freeman Authenticated and [facility]
== END 2023-11-21 23:59 | disposition home or self-care (01) ==
PROVIDERS: PCP Physician Assistant; Visit Provider Orthopaedic Surgery
DX: M25.561 Pain in right knee (principal)
CPT/HCPCS: 73562

== ENCOUNTER 2023-12-03 12:58 | Outpatient (CLI) | payer OTHER, SELFPAY ==
--- NOTE | 2023-12-03 12:59 | MR_ITS ---
FINAL REPORT CLINICAL HISTORY: Rt Knee Pain COMPARISON: None FINDINGS: Multi planar MR imaging was performed of the right knee. The anterior and posterior cruciate ligaments are intact. The quadriceps and patellar tendons are intact. There is a large full-thickness tear of the anterior horn of the lateral meniscus, with a curvilinear lobular fluid collection in Hoffa's fat pad that may represent the sequela of fat necrosis. The medial and lateral collateral ligaments appear intact. The medial and lateral retinacula appear intact. There is no evidence of bone marrow edema or osteochondral defect. No evidence of soft tissue inflammatory reaction. A small joint effusion is present. IMPRESSION: Large tear anterior horn of the lateral meniscus as described.q Reviewed, Interpreted and Dictated by Mega Correa MD Transcribed by Alpa Freeman Authenticated and [facility]
== END 2023-12-03 23:59 | disposition home or self-care (01) ==
LOC: RAD 12:59
PROVIDERS: PCP Physician Assistant; Visit Provider Orthopaedic Surgery
DX: M25.561 Pain in right knee (principal)
CPT/HCPCS: 73721

== ENCOUNTER 2024-01-20 08:45 | Day surgery (SDC) | payer OTHER, SELFPAY ==
[2024-01-06 13:44] VITALS: BMI 26.7
[2024-01-16 13:03] VITALS: BMI 27.3
[2024-01-20] VITALS (12 sets, daily range): BP systolic 108–130; BP diastolic 57–85; PULSE 59–788; RESP 16–18; TEMP 36–36.6; O2SAT 93–100
[2024-01-20] MEDS: LACTATED RINGERS 1000ML 1,000 ML 100 ML IV (09:13)
--- NOTE | 2024-01-20 09:20 | EXP.ANES.CKL ---
[facility] Disclaimer: The information contained in this section may have been updated after the patient was seen, as this information can be updated by other users. Medical History Family history of breast cancer gene mutation in first degree relative Mood swings Menorrhagia Abscess, dental Migraine Asthma RLS (restless legs syndrome) GERD (gastroesophageal reflux disease) COPD (chronic obstructive pulmonary disease) Hepatitis C Neuropathy Surgical History History of tubal ligation History of tonsillectomy History of section Family History Other Cancer Diabetes Hypertension Stroke Thyroid disorder Social History (Updated 01/20/24 @ 09:12 by Cindi Gomes RN) Smoking Status: Never smoker alcohol intake: never substance use type: former substance user, marijuana, crack/cocaine and heroin current occupational status: employed Travel in the last 8 weeks: None household members: spouse and family housing: house 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 caffeine: Yes [facility] Anesthesia Checklist Patient Identification Patient Identification: Arm Band Structural Data Admitted From: Home Planned Operative Procedure/s: Right Knee Arthroscopy, Partial Lateral Meniscectomy Consent for Planned Operative Procedure(s) Verified: Yes Verified Documents: Surgical Consent and History and Physical NPO Status Verified Time NPO: 00:00 Additional verifications Anesthesia Reactions: No Hx Blood Transfusions: Yes Blood Transfusion Reaction: No Airway Assessment Mallampati Score:: Class II C-Spine Mobility Assessed: Yes TMJ Mobility Assessed: Yes Dentition: Good Dentition Neurological Assessment Level of Consciousness: Awake, Alert and Appropriate Anesthesia Plan Anesthesia Risk discussed: Yes Anesthesia Plan: Verified ASA Class: III Anesthesia Type: General
[2024-01-20 09:38] LABS: Urine Pregnancy, HCG Qual. Negative (Negative)
[2024-01-20] MEDS: CEFAZOLIN SODIUM 2 GM in 0.9 % SODIUM CHLORIDE 100 ML IV (09:47)
[2024-01-20] MEDS: BUPIVACAINE 0.25% 30ML VIAL 75 MG (10:17)
[2024-01-20] MEDS: RINGERS SOLUTION,LACTATED 3,000 ML 25 ML IR ×2 (10:17)
--- NOTE | 2024-01-20 10:46 | P.OP_ITS ---
Date of procedure: 01/20/24 Pre-op Diagnosis:: Right knee lateral meniscus tear Post-op Diagnosis:: Right knee large macerated tear posterior horn and body of lateral meniscus Procedure performed:: Right knee arthroscopy with partial lateral meniscectomy Surgeon:: Vamshi Saldana DO ETCHER APPRENTICE:: Sherry Allen Anesthesia: GETA Estimated blood loss (mL): 0 Operative findings:: Large macerated tear body and posterior horn of the lateral meniscus Operative note:: Patient is identified preoperatively. Right knee marked with yes and my initials. Patient then taken the operating room given general anesthesia and airway secured. Right lower extremity was then prepped and draped within the knee sibley. Once prepped and draped final operative timeout performed to identify proper patient procedure and extremity. Everyone involved the case agreed. There is no counter indications to beginning. She did receive preoperative antibiotics. Marking pen was used to bonny the bony landmarks of the knee and standard portal sites. Esmarch was used to exsanguinate the extremity. Pneumatic tourniquet inflated to 300 mmHg. Skin knife was used incise standard anterior lateral portal and blunt with trocar was placed in the patellofemoral joint exchange with a camera. I swept directly into the medial joint line where the anterior medial portal was made under direct visualization with the help of an 18-gauge spinal needle. This was then exchanged with a probe. The medial meniscus was intact the medial cartilage intact with some very light softening of the cartilage but no cartilage lesions on the medial femoral condyle or medial tibia. Swept into the intercondylar notch the ACL was seen and intact. Then I swept into the lateral joint line. Within the lateral joint line there was a large macerated tear of the posterior horn and the body of the lateral meniscus that was flipped upon itself and extensive in its nature. The majority of the tear was in the white zone of the meniscus and not repairable or amendable to repair. Using a combination of straight biter and sucker shaver partial lateral meniscectomy was performed back to the [facility]. Unfortunately a large portion of the posterior horn of the lateral meniscus was having to be sacrificed secondary to the nature of the tear. Once meniscectomy was completed I drove into the medial lateral gutters in the patellofemoral joint no further pathology in the knee was seen the camera was removed. The joint was drained. Local anesthesia infiltrated the portal sites. Skin closed with nylon stitch. Sterile dressing placed from toe to thigh patient waken anesthesia taken recovery stable condition Condition: stable Disposition: PACU Complications:: None apparent
--- NOTE | 2024-01-20 10:56 | EXP.ANES.I ---
[facility] Anesthesia Record Part I Anesthesia Record I Intake, IV Amount: 900 Hydration: Adequate Estimated blood loss (mL): 10 Urine output (mL): 0 Blood Products used (#): none Blood Pressure: 130/74 SaO2: 93 Pulse Rate: 82 Airway Patency: Patent Respiratory Rate: 16 Temperature: 96.8 F Patient is:: Awake (Talking) and Stable Stable to PACU at:: 10:57
[2024-01-20] MEDS: MORPHINE 2MG/ML SYRINGE 2 MG IV ×2 (11:23→11:37)
[2024-01-20] MEDS: MEPERIDINE 25MG/ML 1ML SYRINGE 25 MG IV (11:35)
--- NOTE | 2024-01-21 12:22 | P.PNANES_ITS ---
[facility] Anesthesia Record Part II Anesthesia Record Part II Discharge Time: 11:40 Destination: Surgical Day Care (OP Surgery) PACU nurse assessment reviewed?: Yes Patient Condition:: Good Anesthesia Complications:: None Swallowing reflex intact?: Yes Airway Patency: Patent Cyanosis?: No Blood Pressure: 123/75 SaO2: 99 Respiratory Rate: 16 Pulse Rate: 63 Temperature: 96.8 F Mental Status: Alert & Oriented Pain level:: 3 Nausea and/or vomitting:: None Intake, IV Amount: 900 Hydration: Adequate
[2024-01-21 12:27] VITALS: BP 123/75; PULSE 63; TEMP 36; O2SAT 99
[2024-01-21 12:40] VITALS: RESP 16
== END 2024-01-20 12:11 | disposition home or self-care (01) ==
PROVIDERS: PCP Physician Assistant; Visit Provider Orthopaedic Surgery
PROC: (CPT 29870; principal; 2024-01-20 09:30)
DX: S83.271A Complex tear of lateral meniscus, current injury, right knee, initial encounter (principal)
CPT/HCPCS: 29881; 81025; 96374; J0690; J1100; J1885; J2175; J2250; J2270; J2405; J3010; J7120